=== PATIENT | female | born 1955 | race Caucasian/White ===

== ENCOUNTER 2017-03-18 15:15 | Emergency (ER) | payer OTHER, MEDICARE ==
[~2017-03-18 15:15] MED LIST: AMITRIPTYLINE H50 M2 PO; ATENOLOL25 M1 PO; CALTRATE 600 +1 EACH PO; CLONAZEPAM0.5 M2 PO; COLACE100 M1 PO; COUMADIN5 M2 PO; DEPAKOTE500 M1 PO; LIPITOR40 M1 PO; MAGNESIUM400 M1 PO; NON-ASPIRIN PA325 MG PO; NORVASC5 M1 PO; OMEPRAZOLE40 M1 PO; OXYCODONE HCL10 M2 PO; OXYCODONE HCL5 M1 PO; OXYCONTIN30 M1 PO; PERCOCET 5-3251 EACH PO; ROBAXIN-750750 M1 PO; SEROQUEL100 M1 PO; SEROQUEL200 M1 PO; SEROQUEL300 M1 PO; VALIUM10 M1 PO; VITAMIN D250000 UNIT PO; ZOFRAN4 M2 PO
--- NOTE | 2017-03-18 15:39 | ED GI/GU/ABDOMINAL COMPLAINT ---
History of Present Illness General Chief Complaint: General Adult Stated Complaint: PT USES THE BATHROOM ALOT,WEAK,LIGHT HEADED Source: patient, old records Exam Limitations: no limitations Vital Signs & Intake/Output Vital Signs & Intake/Output Vital Signs Date Time Temp Pulse Resp B/P B/P Pulse O2 O2 Flow FiO2 Mean Ox Delivery Rate 03/18 1621 Room Air 03/18 1525 97.3 105 22 161/83 97 Allergies Coded Allergies: NO KNOWN ALLERGIES (07/29/16) Reconcile Medications Amitriptyline HCl 50 MG TABLET 1 TAB PO QPM SLEEP (Reported) Amlodipine Besylate (Norvasc) 5 MG TABLET 1 TAB PO DAILY BP (Reported) Atenolol 25 MG TABLET 1 TAB PO DAILY BP (Reported) Atorvastatin Calcium (Lipitor) 40 MG TABLET 1 TAB PO DAILY CHOLESTEROL ( Reported) Cephalexin (Keflex) 500 MG CAPSULE 1 CAP PO BID UTI Clonazepam 0.5 MG TABLET 1 TAB PO TID BIPOLAR (Reported) Divalproex Sodium (Depakote) 500 MG TABLET.DR 500 MG PO TID BIPOLAR (Reported ) Methocarbamol (Robaxin-750) 750 MG TABLET 1 TAB PO TID PRN spasm Methocarbamol (Robaxin) 500 MG TABLET 1 TAB PO TID PRN MUSCLE RELAXANT Omeprazole 40 MG CAPSULE.DR 1 CAP PO DAILY GERD (Reported) Quetiapine Fumarate (Seroquel) 100 MG TABLET 100 MG PO QAM BIPOLAR (Reported) Quetiapine Fumarate (Seroquel) 200 MG TABLET 200 MG PO QHS BIPOLAR (Reported) Tylenol With Codeine (Tylenol With Codeine #3 Tablet) 300 MG-30 MG TABLET 1 TAB PO BIDP PRN PAIN (Reported) Triage Note: PER PT FREQUENCY, AND GOING ALL TIME PT HAS HAD THIS FROM SEPTEMBER WAS HERE FOR SAME. SAW DR LOYOLA AND WAS TREATED X 1 MONTH, THEN IT STARTED AGAIN IN JANUARY. PT HAS MULTIPLE CO HEART MUMMER THAT WAS NEVER F/U ON, AND RED BLOTHES TO ARMS, FEELING WEAK, ALSO HAS CHRONIC PAIN BUT THEY KEEP CANCELLING MY APPT. Triage Nurses Notes Reviewed? yes ? n Is pt currently ? No HPI: Patient is a 61-year-old female presents complaining of multiple complaints. One to 2 months of urinary frequency, intermittent lightheadedness with position changes. Patient also reporting that she has a heart murmur that her visiting nurse told her was more pronounced today. Visiting nurse also told patient that she has irregular heartbeat. Patient was seen in the emergency department in September 2016 for evaluation of urinary frequency, was recommended to follow-up with the urologist. Patient has not seen a urologist yet. Past History Travel History Traveled to [place] past 21 day No Medical History Any Pertinent Medical History? see below for history Neurological: NONE EENT: TONSILECTOMY Cardiovascular: hypertension, hyperlipidemia Respiratory: NONE Gastrointestinal: GERD, DYSPHAGIA CONSTIPATION Hepatic: NONE Renal: NONE Musculoskeletal: osteoarthritis Psychiatric: opioid dependence Endocrine: hypoglycemia RADIOLOGIC TECH/Reproductive: HYSTERECTOMY History of MRSA: No History of VRE: No History of CDIFF: No Surgical History Surgical History: knee replacement Psychosocial History Who do you live with Patient/Self Services at Home Nursing What is your primary language Tajik Tobacco Use: Never used Family History Hx Contributory? No Review of Systems Review of Systems Constitutional: Reports: malaise. Denies: chills, fever. EENTM: Reports: no symptoms. Respiratory: Denies: cough, short of breath. Cardiovascular: Denies: chest pain. GI: Reports: bloating. Denies: abdominal pain, nausea, vomiting. Genitourinary: Reports: see HPI, frequency, urgency. Musculoskeletal: Reports: back pain (chronic, unchanged), neck pain (chronic unchanged). Skin: Reports: no symptoms. Neurological/Psychological: Reports: no symptoms. Hematologic/Endocrine: Reports: no symptoms. Immunologic/Allergic: Reports: no symptoms. Physical Exam Physical Exam General Appearance: well developed/nourished, alert, awake Head: atraumatic, normal appearance Eyes: Bilateral: normal appearance, PERRL, EOMI. Ears, Nose, Throat, Mouth: hearing grossly normal, moist mucous membrane Neck: normal inspection, supple, full range of motion Respiratory: normal breath sounds, chest non-tender, no respiratory distress, lungs clear Cardiovascular: regular rate/rhythm, systolic murmur (4/6) Gastrointestinal: normal bowel sounds, soft, non-tender Back: normal inspection, normal range of motion Extremities: normal range of motion Neurologic/Psych: awake, alert, oriented x 3 Skin: intact, normal color, warm/dry, NORMAL SKIN TURGOR Core Measures ACS in differential dx? No Severe Sepsis Present: No Septic Shock Present: No Progress Differential Diagnosis: AAA, AMI, appendicitis, biliary colic, bowel obstruction , colon cancer, cholecystitis, diverticulitis, endometritis, hepatitis, hernia, ischemic bowel, inflamm bowel dis, ovarian cyst, ovarian torsion, pancreatitis, PID/cervicitis, peptic ulcer, PUD/GERD, perforated viscous, SBO, UTI/pyelo, electrolyte abnormality, dehydration, arrhythmia, aortic stenosis, MVP, mitral regurge Plan of Care: Orders Procedure Date/time Status Add-on Test (ER Only) 03/18 1724 Active Add-on Test (ER Only) 03/18 1629 Active TSH REFLEX 03/18 1605 Active TROPONIN LEVEL 03/18 1605 Active Telemetry/Rn Psych 03/18 1556 Active MISTAKE 03/18 1550 Active DEPAKOTE LEVEL 03/18 1550 Active COMPREHENSIVE METABOLIC PANEL 03/18 1550 Active CBC WITHOUT DIFFERENTIAL 03/18 1550 Complete EKG 03/18 1550 Active CULTURE,URINE 03/18 1528 Active URINALYSIS 03/18 1528 Complete Laboratory Tests 03/18/17 1708: Urinalysis LIGHT H, Urine Color YEL, Urine Clarity HAZY H, Urine pH 6.5, Ur Specific [place] 1.025, Urine Protein NEG, Urine Ketones 15 H, Urine Nitrite NEG, Urine Bilirubin NEG, Urine Urobilinogen 0.2, Ur Leukocyte Esterase LARGE H , Ur Microscopic SEDIMENT EXAMINED, Urine RBC 1-3, Urine WBC 15-25 H, Ur Epithelial Cells FEW, Urine Bacteria MOD H, Urine Mucus MOD H, Urine Hemoglobin SMALL H, Urine Glucose NEG 03/18/17 1605: Anion Gap 13, Estimated GFR > 60, BUN/Creatinine Ratio 32.0 H, Glucose 98, Calcium 9.9, Total Bilirubin 0.5, AST 22, ALT 24, Alkaline Phosphatase 48, Troponin I < 0.01, Total Protein 7.1, Albumin 4.2, Globulin 2.9, Albumin/ Globulin Ratio 1.4, TSH &T3 &Free T4 Intrp Pending, CBC w Diff NO MAN DIFF REQ, RBC 4.28, MCV 97.3, MCH 32.6 H, RDW 14.5, MPV 6.7 L, Gran % 52.5, Lymphocytes % 38.4, Monocytes % 7.8, Eosinophils % 0.9, Basophils % 0.4, Absolute Granulocytes 2.9, Absolute Lymphocytes 2.1, Absolute Monocytes 0.4, Absolute Eosinophils 0, Absolute Basophils 0, PUBS MCHC 33.5, Valproic Acid 65.0 Microbiology 03/18 1708 URINE ROUT: Urine Culture - RECD 03/18/2017 5:45:15 PM: Results of labs discussed with patient. Diffuse mild ST depression on EKG. No chest pain or dyspnea. Troponin negative. Patient appears stable to follow up with cardiology outpatient. Patient has appointment with her primary care doctor early next week. Will start patient on antibiotics for urinary tract infection (MONCHO KOENIG,DANUTA) Initial ED EKG: normal axis, normal intervals, normal p-waves, normal QRS complex, normal sinus rhythm, ST depression (diffuse leads) Departure Departure Time of Disposition: 1737 Disposition: HOME OR SELF CARE Condition: Stable Clinical Impression Primary Impression: Urinary tract infection Qualifiers: Urinary tract infection type: acute cystitis Hematuria presence: without hematuria Qualified Code: N30.00 - Acute cystitis without hematuria Referrals: MOUSTAPHA LOPES,REGINE LOYOLA MD,ELIZABETH Stacy (PCP/Family) ROMMEL LOPES,EMERY Additional Instructions: Follow-up with your primary doctor next week as previously scheduled. Return to the emergency department if you develop fevers or worsening of symptoms. Also follow up with Dr. Ren(urologist) and Dr. Yu(cloth mercerizing supervisor) for further evaluation. Call in the morning for appointments. Departure Forms: Customer Survey General Discharge Information Prescriptions: Current Visit Scripts Cephalexin (Keflex) 1 CAP PO BID #14 CAP Methocarbamol (Robaxin) 1 TAB PO TID PRN MUSCLE RELAXANT #21 TAB
[2017-03-18] MEDS ORDERED: SEROQUEL100 M1 PO (16:01)
[2017-03-18] MEDS ORDERED: SEROQUEL200 M1 PO (16:02)
[2017-03-18] MEDS ORDERED: TYLENOL WITH C1 EACH PO (16:04)
[2017-03-18 16:15] LABS: ABSOLUTE BASOPHIL COUNT 0 /CUMM (0.0-0.2); ABSOLUTE EOSINOPHIL COUNT 0 /CUMM (0.0-0.7); ABSOLUTE GRANULOCYTE CT 2.9 /CUMM (1.4-6.5); ABSOLUTE LYMPH COUNT 2.1 /CUMM (1.2-3.4); ABSOLUTE MONOCYTE COUNT 0.4 /CUMM (0.10-0.60); BASOPHIL % 0.4 % (0.0-2.0); EOSINOPHIL % 0.9 % (0-5); GRANULOCYTE % 52.5 % (42.2-75.2); HEMATOCRIT 41.6 % (37-47); MEAN CORPUSCULAR HGB 32.6 PG (27.0-31.0); MEAN CORPUSCULAR HGB CONC 33.5 G/DL (33.0-37.0); MEAN CORPUSCULAR VOLUME 97.3 FL (81.0-99.0); MEAN PLATELET VOLUME 6.7 FL (7.4-10.4); PLATELET COUNT 255 /CUMM (130-400); RBC DISTRIBUTION WIDTH 14.5 % (11.5-14.5); RED BLOOD CELL CT 4.28 /CUMM (4.20-5.40); WHITE BLOOD CELL COUNT 5.5 /CUMM (4.8-10.8)
[2017-03-18] MEDS ORDERED: KEFLEX500 M1 PO (17:29)
[2017-03-18] MEDS ORDERED: ROBAXIN500 M1 PO (17:37)
[2017-03-18 18:11] VITALS: BP 142/72
== END 2017-03-18 18:12 ==
LOC: ERH 15:15
PROVIDERS: Physician Assistant
DX: N39.0 Urinary tract infection, site not specified (principal)
CPT/HCPCS: 81001; 87086; 93005; 93010; 96360; 96361; J7040

== ENCOUNTER 2018-07-02 19:03 | Inpatient (IN) | payer OTHER, MEDICARE ==
[~2018-07-02] VITALS: Ht 162.6 cm; Wt 70.9 kg
[~2018-07-02 19:03] MED LIST changes: +AMLODIPINE BESY10 M1 PO; +ATIVAN0.5 M1 PO; +CARAFATE1 GM/10 M1 PO; +FIORINAL 50-321 EACH PO; +IMITREX100 M1 PO; +KEFLEX500 M1 PO; +ROBAXIN500 M1 PO; +SEROQUEL25 M1 PO; +TYLENOL WITH C1 EACH PO; +ZOFRAN8 M1 PO
[2018-07-02 20:42] LABS: ABSOLUTE BASOPHIL COUNT 0 /CUMM (0.0-0.2); ABSOLUTE EOSINOPHIL COUNT 0 /CUMM (0.0-0.7); ABSOLUTE GRANULOCYTE CT 7.2 /CUMM (1.4-6.5); ABSOLUTE LYMPH COUNT 0.8 /CUMM (1.2-3.4); ABSOLUTE MONOCYTE COUNT 0.3 /CUMM (0.10-0.60); BASOPHIL % 0.3 % (0.0-2.0); EOSINOPHIL % 0 % (0-5); HEMATOCRIT 41.5 % (37-47); MEAN CORPUSCULAR HGB 32.3 PG (27.0-31.0); MEAN CORPUSCULAR VOLUME 94.9 FL (81.0-99.0); MEAN PLATELET VOLUME 7.1 FL (7.4-10.4); PLATELET COUNT 341 /CUMM (130-400); RBC DISTRIBUTION WIDTH 13.6 % (11.5-14.5); RED BLOOD CELL CT 4.37 /CUMM (4.20-5.40); WHITE BLOOD CELL COUNT 8.4 /CUMM (4.8-10.8)
[2018-07-02 21:03] LABS: GRANULOCYTE % 85.9 % (42.2-75.2)
--- NOTE | 2018-07-02 22:01 | ED GI/GU/ABDOMINAL COMPLAINT ---
See Addendum History of Present Illness General Chief Complaint: Abdominal Pain/Flank Pain Stated Complaint: BIBA WITH FOR ABDOMINAL AND CONSITAPATION Source: patient, old records, [facility] RECORDS Exam Limitations: no limitations Vital Signs & Intake/Output Vital Signs & Intake/Output Vital Signs Date Time Temp Pulse Resp B/P B/P Pulse O2 O2 Flow FiO2 Mean Ox Delivery Rate 07/03 0334 98.5 78 18 136/62 97 Room Air 07/03 0045 110 18 179/80 95 Room Air 07/02 2123 99.0 07/02 2117 Room Air 07/02 2103 99.6 98 19 148/76 97 Room Air 07/02 1915 99.3 91 18 157/77 96 Room Air ED Intake and Output 07/03 0000 07/02 1200 Intake Total 0 Output Total Balance 0 Intake, Oral 0 Patient 135 lb Weight Weight Reported by Patient Measurement Method Allergies Coded Allergies: adhesive (Intermediate, SKIN REACTION 04/06/18) Triage Note: PT BIBA FROM HOME C/O CONSTIPATION, NAUSEA, CROCKETT, MIGRAINE SINCE 0900. PT WAS D/C'S FROM [facility] AROUND 1730 AND TAKEN TO [facility] BY AMBULANCE FOR THE SAME. PT STATES THEY DID AN XRAY AND SCAN WHICH SHOWED CONSIPATION, SOAP SUDS ENEMA GIVEN AND PT HAD A BM. PT STATES "I WAS HURRIED UP OUT OF THE HOSPITAL EVEN THOUGH I TOLD THEM I DIDNT FEEL BETTER". PT SENT HOME WITH SCRIPTS THAT SHE HAS NOT BEEN ABLE TO FILL YET. Triage Nurses Notes Reviewed? yes LMP (ages 10-50): post menopausal, unknown ? N Is pt currently ? No Onset: Abrupt Duration: week(s): (1), changing over time, continues in ED Timing: single episode today Quality/Severity: cramping, fullness Severity Numbers: 6 Location: epigastric Radiation: no radiation Activities at Onset: none Prior Abdominal Problems: none Past Sexual History: Unobtainable at this time No Modifying Factors: none HPI: 62-year-old female history of hypertension hyperlipidemia opioid dependence GERD presents for evaluation of abdominal pain nausea and constipation. Patient reports she has not had a bowel movement in 1 week. She states that she has had epigastric pain intermittently as well as nausea. She went to [facility] today for the same symptoms and was evaluated with CT scan and blood work. Evaluation was unremarkable she was given a soapsuds enema which allowed her to have a large bowel movement and was discharged. She reports she continued to have epigastric pain and nausea so she came here. She reports pain that has been located in the epigastric area it has been waxing and waning since it first started. The time of my initial evaluation the pain was getting better without any treatment. She reports associated headache. No vomiting diarrhea changes in vision shortness of breath hemoptysis or lower extremity edema no recent surgery or recent trauma. No chest pain. (Edgar KOENIG,Silver) Reconcile Medications Amlodipine Besylate 10 MG TABLET 1 TAB PO DAILY BP (Reported) Atenolol 25 MG TABLET 1 TAB PO DAILY BP (Reported) Atorvastatin Calcium (Lipitor) 40 MG TABLET 1 TAB PO DAILY CHOLESTEROL ( Reported) Clomiphene Citrate (Serophene) 50 MG TABLET 1 TAB PO QHS MENTAL HEALTH ( Reported) Divalproex Sodium (Depakote) 500 MG TABLET.DR 500 MG PO TID BIPOLAR (Reported ) Duloxetine HCl 20 MG CAPSULE.DR 1 CAP PO DAILY DEPRESSION (Reported) Fiorinal (Fiorinal 50-325-40 MG Capsule) 50 MG-325 MG-40 MG CAPSULE 1 TAB PO TID PRN HEADACHE EIGHT...[id number] Lorazepam (Ativan) 0.5 MG TABLET 1 TAB PO BIDP PRN INSOMNIA/ANXIETY/HEADACHE TWO...[id number] Methocarbamol (Robaxin) 500 MG TABLET 1 TAB PO TID PRN pain Omeprazole 40 MG CAPSULE.DR 1 CAP PO DAILY GERD (Reported) Ondansetron HCl (Zofran) 8 MG TABLET 1 TAB PO TID PRN N/V (Reported) Quetiapine Fumarate (Seroquel) 25 MG TABLET 1 TAB PO TID MENTAL HEALTH ( Reported) Sumatriptan Succinate (Imitrex) 100 MG TABLET 1 TAB PO AD PRN HEADACHES ( Reported) with fluids as early as possible after the onset of a migraine attack;may repeat after 2 hours if headache returns, not to exce (Kasi Leahy DO) Past History Travel History Traveled to [place] past 21 day No Medical History Any Pertinent Medical History? see below for history Neurological: MIGRANES EENT: TONSILECTOMY Cardiovascular: hypertension, hyperlipidemia Respiratory: NONE Gastrointestinal: GERD, DYSPHAGIA CONSTIPATION Hepatic: NONE Renal: NONE Musculoskeletal: osteoarthritis Psychiatric: opioid dependence Endocrine: hypoglycemia RETAIL EQUIPMENT ASSOCIATE/Reproductive: HYSTERECTOMY History of MRSA: No History of VRE: No History of CDIFF: No Surgical History Surgical History: knee replacement Psychosocial History Who do you live with Patient/Self Services at Home Nursing What is your primary language Malagasy Tobacco Use: Never used Family History Hx Contributory? No (Silver Parker) Review of Systems Review of Systems Constitutional: Reports: no symptoms. EENTM: Reports: no symptoms. Respiratory: Reports: no symptoms. Cardiovascular: Reports: no symptoms. GI: Reports: see HPI, abdominal pain, constipation, nausea. Genitourinary: Reports: no symptoms. Musculoskeletal: Reports: no symptoms. Skin: Reports: no symptoms. Neurological/Psychological: Reports: no symptoms. Hematologic/Endocrine: Reports: no symptoms. Immunologic/Allergic: Reports: no symptoms. All Other Systems: Reviewed and Negative (Silver Parker) Physical Exam Physical Exam General Appearance: well developed/nourished, no apparent distress, alert, awake Head: atraumatic, normal appearance Eyes: Bilateral: normal appearance, PERRL, EOMI. Ears, Nose, Throat, Mouth: hearing grossly normal, moist mucous membrane Neck: normal inspection, supple, full range of motion Respiratory: normal breath sounds, chest non-tender, no respiratory distress, lungs clear Cardiovascular: regular rate/rhythm, normal peripheral pulses Peripheral Pulses: 2+ radial (R), 2+ radial (L) Gastrointestinal: normal bowel sounds, soft, no organomegaly, tenderness ( EPIGASTRIC ) Rectal: normal inspection, normal rectal tone, heme negative stool, hemmorrhoids Back: normal inspection, normal range of motion, no vertebral tenderness Extremities: normal range of motion Neurologic/Psych: no motor/sensory deficits, awake, alert, oriented x 3, normal gait, normal mood/affect Skin: intact, normal color, warm/dry Core Measures ACS in differential dx? Yes Sepsis Present: No Sepsis Focused Exam Completed? No (Silver Parker) Progress Differential Diagnosis: AAA, AMI, appendicitis, biliary colic, bowel obstruction , colon cancer, diverticulitis, gastritis, hepatitis, ischemic bowel, inflamm bowel dis, intrauterine , kidney stone, ovarian cyst, ovarian torsion, pancreatitis, PID/cervicitis, peptic ulcer, PUD/GERD, perforated viscous, SBO, ACUTE CORONARY SYNDROME Plan of Care: Orders Procedure Date/time Status Patient Data 07/03 040 Active TROPONIN LEVEL 07/03 011 Complete Add-on Test (ER Only) 07/03 43 Active TROPONIN LEVEL 07/02 2330 Complete EKG 07/02 2330 Active EKG 07/02 2128 Active Add-on Test (ER Only) 07/02 2050 Active PARTIAL THROMBOPLASTIN TIME 07/02 2030 Complete PROTHROMBIN TIME 07/02 2030 Complete MAGNESIUM 07/02 2030 Complete ETHANOL 07/02 2030 Complete B-TYPE NATRIURETIC PEP (BNP) 07/02 2030 Complete LACTIC ACID 07/02 2003 Complete URINE DRUGS OF ABUSE 07/02 1939 Complete URINALYSIS 07/02 1939 Complete TROPONIN LEVEL 07/02 1939 Complete LIPASE 07/02 1939 Complete COMPREHENSIVE METABOLIC PANEL 07/02 1939 Complete CBC WITHOUT DIFFERENTIAL 07/02 1939 Complete Current Medications Sig/Livia Start time Last Medication Dose Stop Time Status Admin Heparin Sodium 25,000 UNIT Q24H 07/03 004 AC 07/03 (Porcine) 0135 (Heparin) Sodium Chloride 500 ML Laboratory Tests 07/03/18 0240: Troponin I 0.15 *H 07/03/18 0030: Urine Opiates Screen > 4000.00 H, Methadone Screen 61, Barbiturate Screen 249 H, Ur Phencyclidine Scrn < 6.00, Amphetamines Screen < 100, U Benzodiazepines Scrn 231 H, Urine Cocaine Screen < 50, Urine Cannabis Screen < 5.00, Urine Color YEL, Urine Clarity CLEAR, Urine pH 7.0, Ur Specific [place] 1.010, Urine Protein TRACE H, Urine Ketones 15 H, Urine Nitrite NEG, Urine Bilirubin NEG, Urine Urobilinogen 0.2, Ur Leukocyte Esterase NEG, Ur Microscopic SEDIMENT EXAMINED, Urine RBC 10-15 H, Urine WBC RARE, Ur Epithelial Cells FEW, Urine Hemoglobin MOD H, Urine Glucose NEG 07/02/18 2325: Troponin I 0.16 *H 07/02/182302: Lactic Acid Cancelled 07/02/182029: Lactic Acid 1.3 07/02/182029: Anion Gap 10, Estimated GFR > 60, BUN/Creatinine Ratio 60.0 H, Glucose 126 H, Calcium 10.1, Magnesium 1.2 L, Total Bilirubin 0.5, AST 25, ALT 39, Alkaline Phosphatase 83, Troponin I 0.10, [id number] Pept 205 H, Total Protein 7.5, Albumin 4.5, Globulin 3.0, Albumin/Globulin Ratio 1.5, Lipase 67, PT 10.8, INR 0.99, APTT 26, CBC w Diff NO MAN DIFF REQ, RBC 4.37, MCV 94.9, MCH 32.3 H, MCHC 34.0, RDW 13.6, MPV 7.1 L, Gran % 85.9 H, Lymphocytes % 9.9 L, Monocytes % 3.9, Eosinophils % 0, Basophils % 0.3, Absolute Granulocytes 7.2 H, Absolute Lymphocytes 0.8 L, Absolute Monocytes 0.3, Absolute Eosinophils 0, Absolute Basophils 0, Serum Alcohol < 10.0 Patient is here for evaluation of constipation abdominal pain and nausea. The pain is located in the epigastric area. She has no chest pain or shortness of breath. She was seen at [facility] earlier today. She had a CAT scan done that was within normal limits. See attached paperwork in her physical chart. She was given a enema and was able to have a bowel movement. Labs EKG ordered vision medicated with Fioricet and Zofran. Blood work shows a troponin of 0.10 still negative and was positive. Patient denies chest pain but did have epigastric pain. At the time of my evaluation her pain was going away and she is asymptomatic currently. She has no chest pain or shortness of breath. An EKG was ordered which does not appear to be significant change there are some nonspecific ST-T wave changes in the chest leads but they are not significantly different from previous. A repeat EKG troponin will be obtained. Repeat troponin is +0.16. Repeat EKG is unremarkable. Patient remains asymptomatic. Spoke with ecological economist seed and fertilizer specialist Dr. Logan who recommends loading with BRILLENTA and heparin. Patient was also given aspirin. Patient will be admitted to telemetry for serial lab serial EKGs cardiology echocardiogram IV heparin. Case discussed with Dr. Leahy he agrees. Dr. Leahy admitted the patient to telemetry. Diagnostic Imaging: Viewed by Me: CT Scan ([facility]). Discussed w/RAD: CT Scan ([facility]) . Initial ED EKG: normal sinus rhythm, nonspecific ST T wave chg Prior EKG: unchanged Repeat EKG: unchanged (Silver Parker) Departure Departure Disposition: STILL A PATIENT Condition: Stable Clinical Impression Primary Impression: NSTEMI (non-ST elevated myocardial infarction) Referrals: Alison LOPES,Odilia Lee (PCP/Family) Departure Forms: Customer Survey General Discharge Information Admission Note Spoke With: Domenico Burrows MD Documentation of Exam: Documentation of any treatments & extenuating circumstances including Concerns Regarding Discharge (functional status, medication knowledge or non-compliance, living conditions, etc.) that warrant an admission rather than observation: [ serial lab serial EKGs cardiology echocardiogram IV hepari] (Edgar KOENIG,Silver) Resident Co-Sign Statement Statement: ED Attending supervision documentation- [X] I saw and evaluated the patient. I have also reviewed all the pertinent lab results and diagnostic results. I agree with the findings and the plan of care as documented in the Resident's documentation. [] I have reviewed the ED Record and agree with the Resident's documentation. [] Additions or exceptions (if any) to the Resident's note and plan are summarized below: [] I saw and personally examined the patient and I agree with the PAs evaluation. 62-year-old female status post episode of abdominal pain and vomiting at [facility]. She continued to have ongoing nausea and abdominal pain and then developed chest pain. Troponin was positive, EKG shows nonspecific ST-T wave abnormality (Kasi Leahy DO)
[2018-07-03 01:13] LABS: PT 10.8 SEC (9.4-12.5); PTT 26 SEC (25-37)
--- NOTE | 2018-07-03 01:13 | RADIOLOGY REPORT ---
EXAMINATION: XR PORTABLE CHEST CLINICAL INFORMATION: Epigastric pain COMPARISON: None TECHNIQUE: Portable frontal view of the chest was obtained. FINDINGS: The lungs are well expanded. There is no focal consolidation, edema, or effusion. No pneumothorax. The cardiomediastinal silhouette is within normal limits. No acute osseous abnormality. IMPRESSION: No acute pulmonary finding.
[2018-07-03] MEDS ORDERED: DULOXETINE HCL20 MG PO (02:32)
--- NOTE | 2018-07-03 04:20 | History & Physical ---
Kristyn Yu 07/03/18 0407: General Information and HPI MD Statement: I have seen and personally examined ALEX LILLY and documented this H&P. The patient is a 62 year old F who presented with a patient stated chief complaint of abdominal pain and nausea. Source of Information: patient, old records Exam Limitations: no limitations History of Present Illness: Patient is a 62 year old female with past medical history of hypertension, hyperlipidemia, migraines, opioid dependence, GERD, dysphagia who came to ED for evaluation of abdominal pain, nausea and constipation. Of note, patient went to [facility] earlier in the day for the same symptoms. At that time she was evaluated with CT scan and blood work which was unremarkable and discharged after a bowel movement. Patient on assessment claimed she had abdominal pain which started yesterday at 8AM described to be aching in nature, 9/10 on the pain scale and intermittent. Originally, the abdominal pain started under the left lower rib but radiated to the epigastric region where it remained. Pain was non-positional and she had no appetite all day since the morning. In addition, patient has been constipated for past week which she attributes to a new medication (mybetric) that was given by her urologist 2 weeks ago for overactive bladder with noted side effect of constipation. Patient has been having nausea that has been increasing with the abdominal pain which made her come to the [facility] ED. She denies any vomiting, diarrhea and claims she has not been passing gas lateley. Patient has had trouble urinating since starting the new medication. She claimed to have "anxiety" recently with "palpitations stating my heart feels like it was jumping out of my chest." No chest pain reported. Patient has a family history of CAD with a father with LA at age 45 and grandmother stroke at age 50. Patient lives at home alone and uses a walker at baseline. Boom Master: Dr. Yu ROS: Negative For: Abdominal pain, nausea, vomiting, headache, shortness of breath, dysuria, chest pain Past Surgical:Tonssilectomy, Hysterectomy, Carpal Tunnel in Nov 2017 Family Hx: Father LA at age 45 Smoking/Alcohol: Denies use Allergies/Medications Home Med list Amlodipine Besylate 10 MG TABLET 1 TAB PO DAILY BP (Reported) Atenolol 25 MG TABLET 1 TAB PO DAILY BP (Reported) Atorvastatin Calcium (Lipitor) 40 MG TABLET 1 TAB PO DAILY CHOLESTEROL ( Reported) Clomiphene Citrate (Serophene) 50 MG TABLET 1 TAB PO QHS MENTAL HEALTH ( Reported) Divalproex Sodium (Depakote) 500 MG TABLET.DR 500 MG PO TID BIPOLAR (Reported ) Duloxetine HCl 20 MG CAPSULE.DR 1 CAP PO DAILY DEPRESSION (Reported) Fiorinal (Fiorinal 50-325-40 MG Capsule) 50 MG-325 MG-40 MG CAPSULE 1 TAB PO TID PRN HEADACHE EIGHT...[id number] Lorazepam (Ativan) 0.5 MG TABLET 1 TAB PO BIDP PRN INSOMNIA/ANXIETY/HEADACHE TWO...[id number] Methocarbamol (Robaxin) 500 MG TABLET 1 TAB PO TID PRN pain Omeprazole 40 MG CAPSULE.DR 1 CAP PO DAILY GERD (Reported) Ondansetron HCl (Zofran) 8 MG TABLET 1 TAB PO TID PRN N/V (Reported) Quetiapine Fumarate (Seroquel) 25 MG TABLET 1 TAB PO TID MENTAL HEALTH ( Reported) Sumatriptan Succinate (Imitrex) 100 MG TABLET 1 TAB PO AD PRN HEADACHES ( Reported) with fluids as early as possible after the onset of a migraine attack;may repeat after 2 hours if headache returns, not to exce Past History Travel History Traveled to [place] past 21 day No Medical History Neurological: MIGRANES EENT: TONSILECTOMY Cardiovascular: hypertension, hyperlipidemia Respiratory: NONE Gastrointestinal: GERD, DYSPHAGIA CONSTIPATION Hepatic: NONE Renal: NONE Musculoskeletal: osteoarthritis Psychiatric: opioid dependence Endocrine: hypoglycemia PEDIATRIC SOCIAL WORKER/Reproductive: HYSTERECTOMY History of MRSA: No History of VRE: No History of CDIFF: No Surgical History Surgical History: knee replacement Past Family/Social History Psychosocial History Services at Home: Nursing Smoking Status: Never Smoked ETOH Use: denies use Sexual History Past Sexual History Unobtainable at this time Review of Systems Review of Systems Constitutional: Denies: see HPI. Exam & Diagnostic Data Last 24 Hrs of Vital Signs/I&O Vital Signs Date Time Temp Pulse Resp B/P B/P Pulse O2 O2 Flow FiO2 Mean Ox Delivery Rate 07/03 0334 98.5 78 18 136/62 97 Room Air 07/03 0045 110 18 179/80 95 Room Air 07/02 2123 99.0 07/02 2117 Room Air 07/02 2103 99.6 98 19 148/76 97 Room Air 07/02 1915 99.3 91 18 157/77 96 Room Air Intake & Output 07/03 0800 07/03 0000 07/02 1600 Intake Total 0 Output Total Balance 0 Intake, Oral 0 Patient 154 lb 135 lb Weight Weight Reported by Patient Measurement Method Physical Exam General Appearance Alert, Oriented X3, Cooperative, No Acute Distress Skin No Rashes, No Breakdown HEENT PERRLA, EOMI, Mucous Membr. moist/pink Neck Supple, No JVD, No thryomegaly Cardiovascular Regular Rate, Normal S1, Normal S2 Lungs Clear to Auscultation, Normal Air Movement Abdomen Normal Bowel Sounds, Soft, No Tenderness Neurological Normal Speech, Strength at 5/5 X4 Ext, Normal Tone, Sensation Intact, Cranial Nerves 3-12 NL, Reflexes 2+ Extremities No Clubbing, No Cyanosis, No Edema Last 24 Hrs of Labs/Maurizio: Laboratory Tests 07/03/18 0240: Troponin I 0.15 *H 07/03/18 0030: Urine Opiates Screen > 4000.00 H, Methadone Screen 61, Barbiturate Screen 249 H, Ur Phencyclidine Scrn < 6.00, Amphetamines Screen < 100, U Benzodiazepines Scrn 231 H, Urine Cocaine Screen < 50, Urine Cannabis Screen < 5.00, Urine Color YEL, Urine Clarity CLEAR, Urine pH 7.0, Ur Specific [place] 1.010, Urine Protein TRACE H, Urine Ketones 15 H, Urine Nitrite NEG, Urine Bilirubin NEG, Urine Urobilinogen 0.2, Ur Leukocyte Esterase NEG, Ur Microscopic SEDIMENT EXAMINED, Urine RBC 10-15 H, Urine WBC RARE, Ur Epithelial Cells FEW, Urine Hemoglobin MOD H, Urine Glucose NEG 07/02/18 2325: Troponin I 0.16 *H 07/02/18 2303: Lactic Acid Cancelled 07/02/18 2030: Lactic Acid 1.3 07/02/18 2030: Anion Gap 10, Estimated GFR > 60, BUN/Creatinine Ratio 60.0 H, Glucose 126 H, Calcium 10.1, Magnesium 1.2 L, Total Bilirubin 0.5, AST 25, ALT 39, Alkaline Phosphatase 83, Troponin I 0.10, Cxo-A-Ecnetcodccf Pept 205 H, Total Protein 7.5, Albumin 4.5, Globulin 3.0, Albumin/Globulin Ratio 1.5, Lipase 67, PT 10.8, INR 0.99, APTT 26, CBC w Diff NO MAN DIFF REQ, RBC 4.37, MCV 94.9, MCH 32.3 H, MCHC 34.0, RDW 13.6, MPV 7.1 L, Gran % 85.9 H, Lymphocytes % 9.9 L, Monocytes % 3.9, Eosinophils % 0, Basophils % 0.3, Absolute Granulocytes 7.2 H, Absolute Lymphocytes 0.8 L, Absolute Monocytes 0.3, Absolute Eosinophils 0, Absolute Basophils 0, Serum Alcohol < 10.0 Diagnostic Data EKG Results NSR 81, nonspecific T wave changes Assessment/Plan Assessment: Patient is a 62 year old female with past medical history of migraines, popod dependence, hypertension, hyperlipidemia, GERD who came to ED for evaluation of abdominal pain, nausea and constipation. Patient went to [facility] earlier today for same symptoms and evaluated with CT scan and blood work which was unremarkable. Given enema at the hospital and had a bowel movement prior to discharge. Admitting to telemetry for given elevated troponins 0.16, 0.15, history of palpitations prior to admission, strong family history of CAD (father LA 45). EMERGENCY DEPARTMENT: ASA 325 + Brilinta 180mg, Heparin bolus + Heparin 25,000 IV, Ativan X1, Zofran, Fioricet Vitals: 99.3, 91, 18, 157/77--179/80, 96%RA EKG: NSR 71, nonspecfic T wave changes Troponin: 0.10, 0.16, 0.15 CBC: WBC: 8.4, Hgb: 14.1, Hct: 41.5, Plt: 341 Chemistry: Na 134, K 3.6, Cl 94, CO2 30, BUN 18, Cr: 0.3 M.2 AST: 25; ALT: 39 Lactic Acid: 1.3 Utox: -barbiturate (H); Benzo 231 (H), Urine opiate +\\ UA: Ketones (15H), trace protein, CXR: IMPRESSION: No acute pulmonary finding. SPECT Scan in 04/2017: (abnbormal ecg) - Jeronimo Santiago IMPRESSION: Normal Persantine stress and resting myocardial perfusion study with normal left ventricular wall motion and ejection fraction. PROBLEM LIST: 1. Rule Out ACS (elevated troponins) 2. Abdominal Pain/nausea 3. Hypertension ELEVATED TROPONINS Patientdid not have a cheif complaint of chest pain on admission but rather epigastric. She admitted to palpiations associated with her course. Significant strong family history of CAD (Father LA age 45). No signfiicant EKG changes. Patients clinical picture likely due to demand ischemia given palpiations/ elevated heart rate versus a coronary syndrome. History of negative SPECT scan in 2016. Received ASA/Brilinta as per Dr. Montero in the ED. * Admit to telemetry for further monitoring * IV Heparin drip * Continue ASA + statin; received loading dose of ASA and brilinta in ED * Cardiology consultation in AM (patient follows Dr. Yu) * Serial Troponin/EKGs * Consider ECHO if recent not done * Vitals Q Shift ABDOMINAL PAIN Patient had a negative work up for abdominal pain at [facility] and was able to pass a bowel movement. Symptoms on assessment in ED resolved. Patient given zofran in ED. LFTs wnl. Negative physical exam. Constipation attributed to urological medication for overactive bladder. Will hold for now. * Monitor on telemetry * Bowel regimen as needed * Monitor vitals q shift HYPERTENSION Patients blood pressure hypertensive on admission. 157/77 to 179/80. This may be due to pain but she has a history of hypertension. * Monitor on telemetry * Vitals Q Shift * Continue home medications for blood pressure Code Status: DNR/DNI DVT PPx: IV Heparin Diet: Heart Healthy Diet As Ranked By This Provider Problem List: 1. Migraine headache 2. NSTEMI (non-ST elevated myocardial infarction) Core Measures/Misc (08/08) Acute Coronary Syndrome ACS Diagnosis: Yes Congestive Heart Failure Congestive Heart Failure Diagnosis No Cerebrovascular Accident CVA/TIA Diagnosis: No VTE (View Protocol) VTE Risk Factors Age>40 No Mechanical VTE Prophylaxis d/t N/A MechProphylax Ordered No VTE Pharm Prophylaxis d/t NA PharmProphylax ordered Sepsis (View protocol) If YES complete Sepsis Event Note If YES complete Sepsis Event Note Angeles Jarquin 07/03/18 0529: Core Measures/Misc (08/08) Sepsis (View protocol) Sepsis Present: No If YES complete Sepsis Event Note If YES complete Sepsis Event Note Resident Review Statement Resident Statement: examined this patient, discussed with customer experience intern, agreed with customer experience intern Other Findings: Patient is 59-year-old female with past medical history of migraines, GERD, dysphagia, osteoarthritis, opioid dependence, who came into the hospital with chief complaint of epigastric pain and nausea. Patient states that she has been having this epigastric pain and nausea since 8 AM yesterday, the pain is achy in nature, 9/10 at worst, intermittent. She does not have any appetite since yesterday, and reports that she only ate a little this morning. Patient states that her pain began under the left rib cage initially, and progressed as spasmodic pain radiating to the epigastric region. Earlier today, patient went to [facility] for these symptoms, her abdominal x-ray and CAT scan done there was significant for constipation. She was given soap enema and was discharged after bowel movement. Patient states that when she went home, neither her nausea nor abdominal pain had improved therefore she decided to come to [place]. In [place] ER, patient was given 1 tablet of fiorect for her migraines and Zofran for nausea. Later her labs came back positive for an elevated troponins of 0.16, another set was checked which came back for troponins of 0.15. Dr. Montero was called from ER, and patient was started on heparin drip and loaded with Brillanta. Review of system at the time of admission was negative for headaches/dizziness/ chest pain/abdominal discomfort/burning micturition/pain or swelling in lower extremities. Labs and vitals as above. Patient's reports from [place] reviewed. Chest x-ray done in [place] not significant for any pulmonary finding. Assessment and plan Patient will be admitted to telemetry floor for elevated troponins which could be due to demand ischemia. Patient reported of some palpitations going on intermittently since past 1 week, and palpitations earlier today which could be the cause of demand ischemia. will monitor for any arrythemia. Serial EKG and troponins. Patient follows up with Dr. Yu. With place cardiology consult , will continue patient on heparin drip. Will continue aspirin daily. Of note patient had negative stress test done last year. Patient might eventually need a cardiac cath once she is stabilized because of her positive family history of father having heart attack at the age of 45. Patient was started on Mirabegron 50 mg daily for her overactive bladder by her urologist which could have contributed to her constipation which was going on since the past week. Patient also reports that she has been having urinary hesitancy and blurred vision as well since she started taking this medication. Given that all these are medication sideeffects, we'll stop Mirabegron for now. And patient is advised to follow-up with her urologist. We'll continue the patient on rest of her medications including Tylenol 3, omeprazole duloxetine, divalproex, Quetiapine, atorvastatin, atenolol, amlodipine. Patient was getting Botox injection for migraine which were not helping her. DVT prophylaxis heparin drip Patient is DNR/DNI and wants to be an organ donor Domenico Burrows MD 07/03/18 0615: General Information and HPI Statement: I have seen and personally examined MAXXALEX and documented this H&P. The patient is a 62 year old F who presented with a patient stated chief complaint of [abdominal pain]. Source of Information: patient Exam Limitations: no limitations Allergies/Medications Allergies: Coded Allergies: adhesive (Intermediate, SKIN REACTION 04/06/18) Past History Medical History EENT: TONSILECTOMY Cardiovascular: hypertension, hyperlipidemia Gastrointestinal: GERD Musculoskeletal: osteoarthritis Psychiatric: opioid dependence Endocrine: hypoglycemia Past Family/Social History Psychosocial History Smoking Status: Never Smoked ETOH Use: denies use Illicit Drug Use: denies illicit drug use Review of Systems Review of Systems Constitutional: Reports: see HPI. Exam & Diagnostic Data Last 24 Hrs of Vital Signs/I&O Vital Signs Date Time Temp Pulse Resp B/P B/P Pulse O2 O2 Flow FiO2 Mean Ox Delivery Rate 07/03 0616 99.6 90 16 147/64 95 Room Air 07/03 0334 98.5 78 18 136/62 97 Room Air 07/03 0045 110 18 179/80 95 Room Air 07/023 99.0 07/02 2117 Room Air 07/02 2103 99.6 98 19 148/76 97 Room Air 07/02 1915 99.3 91 18 157/77 96 Room Air Intake & Output 07/03 0800 07/03 0000 07/02 1600 Intake Total 0 Output Total Balance 0 Intake, Oral 0 Patient 154 lb 135 lb Weight Weight Reported by Patient Measurement Method Physical Exam General Appearance Alert, Oriented X3, Cooperative, No Acute Distress Skin No Rashes, No Breakdown Skin Temp/Moisture Exam: Warm/Dry Sepsis Skin Exam (color): Normal for Ethnicity HEENT Atraumatic, PERRLA, EOMI, Mucous Membr. moist/pink Neck Supple, No JVD, No thryomegaly Lymphatic Axillary nl, Cervical nl Cardiovascular Regular Rate, Normal S1, Normal S2 Lungs Clear to Auscultation, Normal Air Movement Abdomen Normal Bowel Sounds, Soft, No Tenderness Neurological Normal Gait, Normal Speech Extremities No Clubbing, No Cyanosis, No Edema Vascular Normal Pulses, Pulses Symmetrical Sepsis Peripheral Pulse Location: Dorsalis Pedis Sepsis Peripheral Pulse Exam: Normal Sepsis Cap Refill Exam: <2 Sec Last 24 Hrs of Labs/Maurizio: Laboratory Tests 07/03/18 0240: Troponin I 0.15 *H 07/03/18 0030: Urine Opiates Screen > 4000.00 H, Methadone Screen 61, Barbiturate Screen 249 H, Ur Phencyclidine Scrn < 6.00, Amphetamines Screen < 100, U Benzodiazepines Scrn 231 H, Urine Cocaine Screen < 50, Urine Cannabis Screen < 5.00, Urine Color YEL, Urine Clarity CLEAR, Urine pH 7.0, Ur Specific [place] 1.010, Urine Protein TRACE H, Urine Ketones 15 H, Urine Nitrite NEG, Urine Bilirubin NEG, Urine Urobilinogen 0.2, Ur Leukocyte Esterase NEG, Ur Microscopic SEDIMENT EXAMINED, Urine RBC 10-15 H, Urine WBC RARE, Ur Epithelial Cells FEW, Urine Hemoglobin MOD H, Urine Glucose NEG 07/02/18 2325: Troponin I 0.16 *H 07/02/18 2303: Lactic Acid Cancelled 07/02/18 2030: Lactic Acid 1.3 07/02/18 2030: Anion Gap 10, Estimated GFR > 60, BUN/Creatinine Ratio 60.0 H, Glucose 126 H, Calcium 10.1, Magnesium 1.2 L, Total Bilirubin 0.5, AST 25, ALT 39, Alkaline Phosphatase 83, Troponin I 0.10, Nfi-V-Kadqntfajvi Pept 205 H, Total Protein 7.5, Albumin 4.5, Globulin 3.0, Albumin/Globulin Ratio 1.5, Lipase 67, PT 10.8, INR 0.99, APTT 26, CBC w Diff NO MAN DIFF REQ, RBC 4.37, MCV 94.9, MCH 32.3 H, MCHC 34.0, RDW 13.6, MPV 7.1 L, Gran % 85.9 H, Lymphocytes % 9.9 L, Monocytes % 3.9, Eosinophils % 0, Basophils % 0.3, Absolute Granulocytes 7.2 H, Absolute Lymphocytes 0.8 L, Absolute Monocytes 0.3, Absolute Eosinophils 0, Absolute Basophils 0, Serum Alcohol < 10.0 Core Measures/Misc (08/08) Sepsis (View protocol) If YES complete Sepsis Event Note If YES complete Sepsis Event Note Attending MD Review Statement Attending Statement Attending MD Statement: examined this patient, discuss w/resident/PA/SECURITY INTERN, agreed w/resident/PA/SECURITY INTERN, reviewed EMR data (avail) Attending Assessment/Plan: This patient is a 62-year-old white female with a significant past medical history for hypertension, hyperlipidemia, migraines, opioid dependence, GERD, dysphagia who came to ED for evaluation of abdominal pain, nausea and constipation. Of note, patient went to [facility] earlier in the day for the same symptoms. At that time she was evaluated with CT scan and blood work which were unremarkable. The pain persisted and she came to [facility]. The abdominal pain started one day prior to admission and described as achy in nature, 9/10 and intermittent. Pain was non-positional and she had no appetite. The symptoms have been increasing in intensity leading to the hospital visits. Upon evaluation in the emergency department studies performed at [facility] were reviewed, she was hypertensive 179/80 136/62, troponins 0.10 0.16 0.15, chest pain-free, EKG - normal sinus rhythm, nonspecific ST T wave chg and patient was without symptoms on admission. Admit to telemetry for acute coronary syndrome with significant family history and positive troponins. Obtain serial EKGs, trend troponin, heparin drip and cardiology consult. DNR/DNI
[2018-07-03 06:30] VITALS: BP 132/70
[2018-07-03 09:23] LABS: ABSOLUTE BASOPHIL COUNT 0 /CUMM (0.0-0.2); ABSOLUTE EOSINOPHIL COUNT 0 /CUMM (0.0-0.7); ABSOLUTE GRANULOCYTE CT 6.3 /CUMM (1.4-6.5); ABSOLUTE LYMPH COUNT 1.4 /CUMM (1.2-3.4); ABSOLUTE MONOCYTE COUNT 0.9 /CUMM (0.10-0.60); BASOPHIL % 0.2 % (0.0-2.0); EOSINOPHIL % 0.2 % (0-5); GRANULOCYTE % 72.9 % (42.2-75.2); MEAN CORPUSCULAR HGB 32.3 PG (27.0-31.0); MEAN CORPUSCULAR HGB CONC 33.7 G/DL (33.0-37.0); MEAN CORPUSCULAR VOLUME 95.6 FL (81.0-99.0); MEAN PLATELET VOLUME 7.7 FL (7.4-10.4); PLATELET COUNT 295 /CUMM (130-400); RBC DISTRIBUTION WIDTH 14.1 % (11.5-14.5); RED BLOOD CELL CT 3.74 /CUMM (4.20-5.40); WHITE BLOOD CELL COUNT 8.6 /CUMM (4.8-10.8)
[2018-07-03 10:16] LABS: HEMATOCRIT 35.8 % (37-47)
[2018-07-03 12:12] LABS: PTT 45 SEC (25-37)
--- NOTE | 2018-07-03 12:32 | Cons- Cardiology ---
General Information and HPI Consulting Request Date of Consult: 07/03/18 Requested By: Domenico Burrows MD Reason for Consult: positive troponins History of Present Illness: 62-year-old lady with past medical history of hypertension, hyperlipidemia, migraines, opioid dependence, GERD, dysphagia and bipolar disorder, who presented to the ER yesterday evening due to epigastric pain. The patient had started presenting severe pain below the left rib cage, and the anterior axillary line, which was quite intense, associated with nausea. She presented to [facility] emergency room given that she had been quite constipated over the past 5 days, although she did pass gas she did not have any significant amount of stools, and thought that perhaps her pain may be abdominal. At [facility] a pseudoobstruction was ruled out by CT scan, and the patient received an effective enema, passing a large amount of stool. The pain however persisted, moving now to the epigastric region, still associated with nausea, and heartburn. The patient was returned home, but given the ongoing pain she presented to [facility]. Upon arrival at the [facility] emergency room, the pain had completely subsided. The pain had been waxing and waning in intensity throughout the day. The initial troponins were positive and subsequently increased to 0.2. The EKG showed some nonspecific repolarization abnormalities. The patient denies syncope, denies palpitations, denies orthopnea, denies lower extremity edema, denies bleeding, denies new neurological deficits. Patient has an extensive family history of early onset coronary artery disease. Her complex human resources manager is Dr. Yu, whom she last approximately a year ago. At the time she underwent a pharmacological stress test (April 2017), which showed no evidence of ischemia. Allergies/Medications Allergies: Coded Allergies: adhesive (Intermediate, SKIN REACTION 04/06/18) Home Med List: Amlodipine Besylate 10 MG TABLET 1 TAB PO DAILY BP (Reported) Atenolol 25 MG TABLET 1 TAB PO DAILY BP (Reported) Atorvastatin Calcium (Lipitor) 40 MG TABLET 1 TAB PO DAILY CHOLESTEROL ( Reported) Divalproex Sodium (Depakote) 500 MG TABLET.DR 500 MG PO TID BIPOLAR (Reported ) Duloxetine HCl 20 MG CAPSULE.DR 1 CAP PO DAILY DEPRESSION (Reported) Fiorinal (Fiorinal 50-325-40 MG Capsule) 50 MG-325 MG-40 MG CAPSULE 1 TAB PO TID PRN HEADACHE EIGHT...[id number] Lorazepam (Ativan) 0.5 MG TABLET 1 TAB PO BIDP PRN INSOMNIA/ANXIETY/HEADACHE TWO...[id number] Methocarbamol (Robaxin) 500 MG TABLET 1 TAB PO TID PRN pain Omeprazole 40 MG CAPSULE.DR 1 CAP PO DAILY GERD (Reported) Ondansetron HCl (Zofran) 8 MG TABLET 1 TAB PO TID PRN N/V (Reported) Quetiapine Fumarate (Seroquel) 25 MG TABLET 1 TAB PO TID MENTAL HEALTH ( Reported) Sumatriptan Succinate (Imitrex) 100 MG TABLET 1 TAB PO AD PRN HEADACHES ( Reported) with fluids as early as possible after the onset of a migraine attack;may repeat after 2 hours if headache returns, not to exce Current Medications: Current Medications Sig/Livia Start time Last Medication Dose Route Stop Time Status Admin Acetaminophen 650 MG Q8P PRN 07/03 0530 AC PO Acetaminophen/ 1 TAB ONCE ONE 07/020 DC 07/02 Butalbital/Caffeine PO 07/02 2131 2149 Acetaminophen/ 1 TAB Q8 PRN 07/03 1000 AC 07/03 Codeine Phosphate PO 1012 Amlodipine Besylate 10 MG DAILY 07/03 900 AC 07/03 PO 0850 Aspirin 81 MG DAILY 07/03 900 AC 07/03 PO 0848 Aspirin 325 MG ONCE ONE 07/03 004 DC 07/03 PO 07/03 0046 0045 Aspirin 0 .STK-MED ONE 07/03 0044 DC PO Atenolol 25 MG DAILY 07/03 900 AC 07/03 PO 0851 Atorvastatin Calcium 40 MG DAILY 07/03 900 AC 07/03 PO 0848 Divalproex Sodium 500 MG TID 07/03 900 AC 07/03 PO 0848 Duloxetine HCl 20 MG DAILY 07/03 900 AC 07/03 PO 0848 Heparin Sodium 0 .STK-MED ONE 07/03 0059 DC (Porcine) .ROUTE Heparin Sodium 4,000 UNIT ONCE ONE 07/03 004 DC 07/03 (Porcine) IV 07/03 0046 0111 Heparin Sodium 25,000 UNIT Q24H 07/03 0045 AC 07/03 (Porcine) IV 0135 Sodium Chloride 500 ML Lorazepam 0.5 MG 0900,1700 PRN 07/03 0530 AC 07/03 PO 07/10 0529 0851 Lorazepam 0 .STK-MED ONE 07/03 0141 DC PO Lorazepam 1 MG ONE ONE 07/03 0130 DC 07/03 PO 07/03 0131 0141 Magnesium Oxide 400 MG ONE ONE 07/03 0545 DC 07/03 PO 07/03 0546 0852 Non-Formulary 0 SEE ADMIN CRITERIA 07/03 530 DC Medication ANY Omeprazole 40 MG DAILY AC 07/03 07 AC 07/03 PO 0847 Ondansetron HCl 0 .STK-MED ONE 07/02 2131 DC PO Ondansetron HCl 4 MG ONCE ONE 07/02 2130 DC 07/02 PO 07/02 Quetiapine Fumarate 25 MG TID 07/03 09 AC 07/03 PO 0851 Ticagrelor 0 .STK-MED ONE 07/03 0100 DC PO Ticagrelor 180 MG ONCE ONE 07/03 0045 DC 07/03 PO 07/03 0046 0111 Review of Systems Review of Systems Constitutional: Reports: see HPI. EENTM: Denies: blurred vision, double vision, ear discharge, ear pain, epistaxis. Cardiovascular: Reports: see HPI. Respiratory: Denies: cough, hemoptysis, orthopnea, short of breath, sputum production, stridor, wheezing. GI: Reports: see HPI, constipation. Genitourinary: Reports: frequency, urgency. Musculoskeletal: Denies: joint pain, joint swelling. Skin: Reports: no symptoms. Neurological/Psychological: Reports: no symptoms. Past History Travel History Traveled to [place] past 21 day No Medical History Neurological: MIGRANES EENT: TONSILECTOMY Cardiovascular: hypertension, hyperlipidemia Respiratory: NONE Gastrointestinal: GERD Hepatic: NONE Renal: NONE Musculoskeletal: osteoarthritis Psychiatric: opioid dependence Endocrine: hypoglycemia CHIEF PSYCHOLOGIST/Reproductive: HYSTERECTOMY Surgical History Surgical History: knee replacement Psychosocial History Where Do You Live? Home Services at Home: Nursing Smoking Status: Never Smoked ETOH Use: denies use Illicit Drug Use: denies illicit drug use Exam & Diagnostic Data Vital Signs and I&O Vital Signs Date Time Temp Pulse Resp B/P B/P Pulse O2 O2 Flow FiO2 Mean Ox Delivery Rate 07/03 0851 82 134/76 07/03 0850 82 134/76 07/03 0711 Room Air 08/12 0630 98.3 80 18 132/70 95 Room Air 07/03 0616 99.6 90 16 147/64 95 Room Air 07/03 0334 98.5 78 18 136/62 97 Room Air 07/03 0045 110 18 179/80 95 Room Air 07/02 2123 99.0 07/02 2117 Room Air 07/02 2103 99.6 98 19 148/76 97 Room Air 07/02 1915 99.3 91 18 157/77 96 Room Air Intake & Output 07/03 1600 07/03 0807/03 0000 07/02 1600 07/02 0000 Intake Total 0 Output Total Balance 0 Intake, Oral 0 Patient 157 lb 135 lb Weight Weight Bed scale Reported by Patient Measurement Method Physical Exam General Appearance: well developed/nourished, no apparent distress, alert, awake Head: atraumatic Eyes: Bilateral: normal appearance. Ears, Nose, Throat: normal ENT inspection Neck: normal inspection, supple, full range of motion, trachea mid line (no JVD) Respiratory: normal breath sounds, chest non-tender, no respiratory distress, lungs clear Cardiovascular: regular rate/rhythm, systolic murmur (1/6 apex), gallop/S3 (no S3 or S4) Gastrointestinal: normal bowel sounds, soft, non-tender Extremities: normal inspection, normal capillary refill, no edema Neurologic/Psych: no motor/sensory deficits, awake, alert, oriented x 3 Labs/Maurizio Results: Laboratory Tests 07/03 07/03 07/03 1035 0820 0820 Chemistry Sodium (137 - 145 mmol/L) 132 L Potassium (3.5 - 5.1 mmol/L) 3.9 Chloride (98 - 107 mmol/L) 95 L Carbon Dioxide (22 - 30 mmol/L) 30 Anion Gap (5 - 16) 8 BUN (7 - 17 mg/dL) 14 Creatinine (0.5 - 1.0 mg/dL) 0.4 L Estimated GFR (>60 ml/min) > 60 BUN/Creatinine Ratio (7 - 25 %) 35.0 H Magnesium (1.6 - 2.3 mg/dL) 1.5 L Troponin I (< 0.11 ng/ml) 0.09 Coagulation APTT Pending Hematology CBC w Diff NO MAN DIFF REQ WBC (4.8 - 10.8 /CUMM) 8.6 RBC (4.20 - 5.40 /CUMM) 3.74 L Hgb (12.0 - 16.0 G/DL) 12.1 Hct (37 - 47 %) 35.8 L MCV (81.0 - 99.0 FL) 95.6 MCH (27.0 - 31.0 PG) 32.3 H MCHC (33.0 - 37.0 G/DL) 33.7 RDW (11.5 - 14.5 %) 14.1 Plt Count (130 - 400 /CUMM) 295 MPV (7.4 - 10.4 FL) 7.7 Gran % (42.2 - 75.2 %) 72.9 Lymphocytes % (20.5 - 51.1 %) 16.0 L Monocytes % (1.7 - 9.3 %) 10.7 H Eosinophils % (0 - 5 %) 0.2 Basophils % (0.0 - 2.0 %) 0.2 Absolute Granulocytes (1.4 - 6.5 /CUMM) 6.3 Absolute Lymphocytes (1.2 - 3.4 /CUMM) 1.4 Absolute Monocytes (0.10 - 0.60 /CUMM) 0.9 H Absolute Eosinophils (0.0 - 0.7 /CUMM) 0 Absolute Basophils (0.0 - 0.2 /CUMM) 0 07/03 07/03 07/02 0240 0030 2325 Chemistry Troponin I (< 0.11 ng/ml) 0.15 *H 0.16 *H Toxicology Urine Opiates Screen (>2000 NG/ML) > 4000.00 H Methadone Screen (>300 NG/ML) 61 Barbiturate Screen (>200 NG/ML) 249 H Ur Phencyclidine Scrn (>25 NG/ML) < 6.00 Amphetamines Screen (>1000 NG/ML) < 100 U Benzodiazepines Scrn (>200 NG/ML) 231 H Urine Cocaine Screen (>300 NG/ML) < 50 Urine Cannabis Screen (>50 NG/ML) < 5.00 Urines Urine Color (YEL,AMB,STR) YEL Urine Clarity (CLEAR) CLEAR Urine pH (5.0 - 8.0) 7.0 Ur Specific [place] (1.001 - 1.035) 1.010 Urine Protein (NEG,<30 MG/DL) TRACE H Urine Ketones (NEG) 15 H Urine Nitrite (NEG) NEG Urine Bilirubin (NEG) NEG Urine Urobilinogen (0.1 - 1.0 EU/dl) 0.2 Ur Leukocyte Esterase (NEG) NEG Ur Microscopic SEDIMENT EXAMINED Urine RBC (0 - 5 /HPF) 10-15 H Urine WBC (0 - 2 /HPF) RARE Ur Epithelial Cells (NONE,FEW) FEW Urine Hemoglobin (NEG) MOD H Urine Glucose (N MG/DL) NEG 07/02 07/02 07/02 2303 2030 2030 Chemistry Sodium (137 - 145 mmol/L) 134 L Potassium (3.5 - 5.1 mmol/L) 3.6 Chloride (98 - 107 mmol/L) 94 L Carbon Dioxide (22 - 30 mmol/L) 30 Anion Gap (5 - 16) 10 BUN (7 - 17 mg/dL) 18 H Creatinine (0.5 - 1.0 mg/dL) 0.3 L Estimated GFR (>60 ml/min) > 60 BUN/Creatinine Ratio (7 - 25 %) 60.0 H Glucose (65 - 99 mg/dL) 126 H Lactic Acid (0.7 - 2.1 mmol/L) Cancelled 1.3 Calcium (8.4 - 10.2 mg/dL) 10.1 Magnesium (1.6 - 2.3 mg/dL) 1.2 L Total Bilirubin (0.2 - 1.3 mg/dL) 0.5 AST (14 - 36 U/L) 25 ALT (9 - 52 U/L) 39 Alkaline Phosphatase (<127 U/L) 83 Troponin I (< 0.11 ng/ml) 0.10 [id number] Pept (<125 pg/mL) 205 H Total Protein (6.3 - 8.2 g/dL) 7.5 Albumin (3.5 - 5.0 g/dL) 4.5 Globulin (1.9 - 4.2 gm/dL) 3.0 Albumin/Globulin Ratio (1.1 - 2.2 %) 1.5 Lipase (23 - 300 U/L) 67 Coagulation PT (9.4 - 12.5 SEC) 10.8 INR (0.90 - 1.19) 0.99 APTT (25 - 37 SEC) 26 Hematology CBC w Diff NO MAN DIFF REQ WBC (4.8 - 10.8 /CUMM) 8.4 RBC (4.20 - 5.40 /CUMM) 4.37 Hgb (12.0 - 16.0 G/DL) 14.1 Hct (37 - 47 %) 41.5 MCV (81.0 - 99.0 FL) 94.9 MCH (27.0 - 31.0 PG) 32.3 H MCHC (33.0 - 37.0 G/DL) 34.0 RDW (11.5 - 14.5 %) 13.6 Plt Count (130 - 400 /CUMM) 341 MPV (7.4 - 10.4 FL) 7.1 L Gran % (42.2 - 75.2 %) 85.9 H Lymphocytes % (20.5 - 51.1 %) 9.9 L Monocytes % (1.7 - 9.3 %) 3.9 Eosinophils % (0 - 5 %) 0 Basophils % (0.0 - 2.0 %) 0.3 Absolute Granulocytes (1.4 - 6.5 /CUMM) 7.2 H Absolute Lymphocytes (1.2 - 3.4 /CUMM) 0.8 L Absolute Monocytes (0.10 - 0.60 /CUMM) 0.3 Absolute Eosinophils (0.0 - 0.7 /CUMM) 0 Absolute Basophils (0.0 - 0.2 /CUMM) 0 Toxicology Serum Alcohol (<10 MG/DL) < 10.0 Assessment/Plan Assessment/Plan Increase in troponin in the context of likely anginal equivalent (epigastric pain), and patient with significant family history of early-onset coronary artery disease, who also suffers from hypertension and dyslipidemia. She is being treated as a non-ST elevation AR, with ticagrelor loading yesterday followed by 90 mg twice daily which will be continued, aspirin, heparin, and her usual medication (Myrbetriq is being withheld). Patient will be seen by Dr. Yu or Joaquim on July 04 to decide whether she should undergo a direct coronary catheterization or repeat a nuclear stress test initially. Patient also has mild hyponatremia, as well as hypertension. Consult Acknowledgment - Thank you for your consult request.
[2018-07-03 15:01] VITALS: BP 122/76
--- NOTE | 2018-07-03 18:44 | PN- Att Addend ---
Attending Addendum Attending Brief Note 62F PMH hypertension, hyperlipidemia, migraines, opioid dependence, GERD, dysphagia presenting with epigastric discomfort, constipation, chronic throat pain with sticking feeling, found to have NSTEMI with elevated troponin and non- specific T-wave changes without ST changes. Today patient still complains of throat discomfort. Her epigastric pain is improved. Troponin has peaked. No further EKG changes or telemetry events. 1. NSTEMI Plan - Continue on telemetry - Continue heparin drip, Brilinta, ASA, Metoprolol - Follow cardiology recommendations - Speech therapy consult - Continue home medications
[2018-07-03 21:06] LABS: PTT 103 SEC (25-37)
[2018-07-03 22:46] VITALS: BP 122/64
[2018-07-04 04:08] LABS: ABSOLUTE BASOPHIL COUNT 0 /CUMM (0.0-0.2); ABSOLUTE EOSINOPHIL COUNT 0 /CUMM (0.0-0.7); ABSOLUTE GRANULOCYTE CT 2.1 /CUMM (1.4-6.5); ABSOLUTE LYMPH COUNT 2.3 /CUMM (1.2-3.4); ABSOLUTE MONOCYTE COUNT 0.5 /CUMM (0.10-0.60); BASOPHIL % 0.5 % (0.0-2.0); GRANULOCYTE % 41.5 % (42.2-75.2); HEMATOCRIT 31.8 % (37-47); MEAN CORPUSCULAR HGB 32.5 PG (27.0-31.0); MEAN CORPUSCULAR HGB CONC 33.9 G/DL (33.0-37.0); MEAN CORPUSCULAR VOLUME 96.1 FL (81.0-99.0); MEAN PLATELET VOLUME 7.5 FL (7.4-10.4); PLATELET COUNT 254 /CUMM (130-400); RBC DISTRIBUTION WIDTH 13.9 % (11.5-14.5); RED BLOOD CELL CT 3.31 /CUMM (4.20-5.40)
[2018-07-04 04:16] LABS: PTT 55 SEC (25-37)
[2018-07-04 06:59] VITALS: BP 126/66
[2018-07-04 09:21] VITALS: BP 134/82
--- NOTE | 2018-07-04 11:27 | PN- Student ---
Subjective Subjective: Pt is amiable, talkative, and is lying comfortably in bed. She reports feeling better today. She slept well last night and states that her abdominal pain has completely dissipated. Her chief complaints now are migraines (07/01 pain - claims sumatriptan doesn't help nor did the botox injections she received at the neurologist) and dysphagia. She exhibits some pressured speech and evident anxiety, and frequently requests fiorcet and/or benzodiazepines for her sxs. She has not had a BM yet today and may need bowel regimen. She denies SOB, palpitations, chest pain, abdominal pain, n/v/d, and fever. Objective Objective: VITALS: Temp 98.4 Pulse 71 RR 18 BP 126/66 O2 92% on RA GEN: NAD, AxO x3, cooperative, friendly HEENT: Atraumatic, PERRLA, EOMI, no tenderness to palpation over the temples, forehead, and scalp. No apparent sensitivity to sound or light. Neck supple w/ no LAD. CARDIO: RRR, nl S1/S2, mild systolic murmur?? at apex, no S3 appreciated PULM: CTA BL ABD: mild diffuse tenderness, soft, + BS, no HSM EXT: 2+ radial pulses, 2+ PT and DP pulses, no edema Results Results: Laboratory Tests 07/04/18 0330: Anion Gap 4 L, Estimated GFR > 60, BUN/Creatinine Ratio 42.5 H, Magnesium 1.7, APTT 55 H, CBC w Diff NO MAN DIFF REQ, RBC 3.31 L, MCV 96.1, MCH 32.5 H, MCHC 33.9, RDW 13.9, MPV 7.5, Gran % 41.5 L, Lymphocytes % 47.0, Monocytes % 10.0 H , Eosinophils % 1.0, Basophils % 0.5, Absolute Granulocytes 2.1, Absolute Lymphocytes 2.3, Absolute Monocytes 0.5, Absolute Eosinophils 0, Absolute Basophils 0, Valproic Acid 55.4 07/03/18 2000: APTT 103 *H 07/03/18 1035: APTT 45 H 07/03/18 0820: Troponin I 0.09 07/03/18 0820: Anion Gap 8, Estimated GFR > 60, BUN/Creatinine Ratio 35.0 H, Magnesium 1.5 L, CBC w Diff NO MAN DIFF REQ, RBC 3.74 L, MCV 95.6, MCH 32.3 H, MCHC 33.7, RDW 14.1, MPV 7.7, Gran % 72.9, Lymphocytes % 16.0 L, Monocytes % 10.7 H, Eosinophils % 0.2, Basophils % 0.2, Absolute Granulocytes 6.3, Absolute Lymphocytes 1.4, Absolute Monocytes 0.9 H, Absolute Eosinophils 0, Absolute Basophils 0 07/03/18 0240: Troponin I 0.15 *H 07/03/18 0030: Urine Opiates Screen > 4000.00 H, Methadone Screen 61, Barbiturate Screen 249 H, Ur Phencyclidine Scrn < 6.00, Amphetamines Screen < 100, U Benzodiazepines Scrn 231 H, Urine Cocaine Screen < 50, Urine Cannabis Screen < 5.00, Urine Color YEL, Urine Clarity CLEAR, Urine pH 7.0, Ur Specific [place] 1.010, Urine Protein TRACE H, Urine Ketones 15 H, Urine Nitrite NEG, Urine Bilirubin NEG, Urine Urobilinogen 0.2, Ur Leukocyte Esterase NEG, Ur Microscopic SEDIMENT EXAMINED, Urine RBC 10-15 H, Urine WBC RARE, Ur Epithelial Cells FEW, Urine Hemoglobin MOD H, Urine Glucose NEG 07/02/18 2325: Troponin I 0.16 *H 07/02/18 2303: Lactic Acid Cancelled 07/02/18 2030: Lactic Acid 1.3 07/02/18 2030: Anion Gap 10, Estimated GFR > 60, BUN/Creatinine Ratio 60.0 H, Glucose 126 H, Calcium 10.1, Magnesium 1.2 L, Total Bilirubin 0.5, AST 25, ALT 39, Alkaline Phosphatase 83, Troponin I 0.10, Yfy-N-Ertxtrblgpa Pept 205 H, Total Protein 7.5, Albumin 4.5, Globulin 3.0, Albumin/Globulin Ratio 1.5, Lipase 67, PT 10.8, INR 0.99, APTT 26, CBC w Diff NO MAN DIFF REQ, RBC 4.37, MCV 94.9, MCH 32.3 H, MCHC 34.0, RDW 13.6, MPV 7.1 L, Gran % 85.9 H, Lymphocytes % 9.9 L, Monocytes % 3.9, Eosinophils % 0, Basophils % 0.3, Absolute Granulocytes 7.2 H, Absolute Lymphocytes 0.8 L, Absolute Monocytes 0.3, Absolute Eosinophils 0, Absolute Basophils 0, Serum Alcohol < 10.0 Assessment/Plan Assessment: IMPRESSION: This is a 62 yr F with hx of GERD, opioid use, HTN, HLD, migraines, dsyphagia, chronic back pain, bipolar disorder, depression, hysterectomy, and knee replacement that presented with abdominal pain w/ elevated troponin. PROBLEM LIST: 1. ACS - troponin peaked and has begun to come down w/ most recent at 0.09. EKGs showed nonspecific T changes w/o ST depression or elevation. Father had ND at 45. 2. Dysphagia - Off and on dysphagia for "years". Nonsmoker but does have hx of GERD. 3. Migraines - Daily migraines. Took fioricet for years. Imitrex and botox have not helped relieve frequency. Plan: 1. ACS - Cont tele - Cont heparin, ticagrelor, ASA, and atenolol - Await Cardio consult 2. Dysphagia - Await swallow eval 3. Migraines - D/c sumatriptan - sxs relief w/ possibly opioids - Refer out to headache/neuro specialist
--- NOTE | 2018-07-04 11:36 | Discharge Summary ---
Visit Information Visit Dates Admission Date: 07/03/18 Discharge Date: 07/04/2018 Hospital Course Course Attending Physician: Bre Orlando MD Primary Care Physician: Alison LOPES,[employer] Hospital Course: Patient is a 62-year-old female with past medical history of hypertension, hyperlipidemia, migraine, opiate dependence, GERD, dysphagia presenting with epigastric discomfort, constipation, chronic throat pain with sticking feeling. Her primary vp rheumatology is Dr. Yu. At the time of presentation her vital signs were stable. EKG was showing non-ST elevation CO with nonspecific T-wave changes without ST changes. Her troponins were elevated in the range of 0.16. Cardiology consult were obtained and patient was started on heparin drip. Advised for transfer to [facility] for further cardiac catheterization. We transferred the patient to [facility] under the care of Dr.Robert Chester Vanegas MD, for cardiac catheterization. Allergies: Coded Allergies: adhesive (Intermediate, SKIN REACTION 04/06/18) Disposition Summary Disposition Principal Diagnosis: NSTEMI with elevated troponin and non-specific T-wave changes without ST changes Additional Diagnosis: Hypertension Hyperlipidemia Migraines Opioid dependence GERD Dysphasia Discharge Disposition: other general hospital Discharge Instructions General Discharge Information Code Status: Do Not Resucitate/Intubat Patient's Diet: Heart healthy diet, keeping n.p.o. for next 24 hour for possible cardiac catheterization Patient's Activity: As tolerated Follow-Up Instructions/Appts: We transferred the patient to [facility] under the care of Dr.Robert Chester Vanegas MD, for cardiac catheterization. Medications at Discharge Discharge Medications: Stop taking the following medications: Fiorinal (Fiorinal 50-325-40 MG Capsule) 50 MG-325 MG-40 MG CAPSULE ORAL THREE TIMES DAILY as needed for HEADACHE Qty = 8 Sumatriptan Succinate (Imitrex) 100 MG TABLET ORAL As Directed as needed for HEADACHES Clomiphene Citrate (Serophene) 50 MG TABLET ORAL TAKE AT BEDTIME Continue taking these medications: Atenolol (Atenolol) 25 MG TABLET 1 Tablet ORAL DAILY Comments: Last Taken: 08/13/16 Time: 0830 Divalproex Sodium (Depakote) 500 MG TABLET.DR 500 Milligram ORAL THREE TIMES DAILY Comments: Last Taken: 08/13/16 Time: 0830 Atorvastatin Calcium (Lipitor) 40 MG TABLET 1 Tablet ORAL DAILY Comments: Last Taken: 08/13/16 Time: 0830 Omeprazole (Omeprazole) 40 MG CAPSULE.DR 1 Capsule ORAL DAILY Comments: Last Taken: 08/13/16 Time: 0700 Methocarbamol (Robaxin) 500 MG TABLET 1 Tablet ORAL THREE TIMES DAILY as needed for pain Qty = 60 Lorazepam (Ativan) 0.5 MG TABLET 1 Tablet ORAL 2 x Daily as needed as needed for INSOMNIA/ANXIETY/HEADACHE Qty = 2 Instructions: TWO...[id number] Amlodipine Besylate (Amlodipine Besylate) 10 MG TABLET 1 Tablet ORAL DAILY Quetiapine Fumarate (Seroquel) 25 MG TABLET 1 Tablet ORAL THREE TIMES DAILY Ondansetron HCl (Zofran) 8 MG TABLET 1 Tablet ORAL THREE TIMES DAILY as needed for N/V Duloxetine HCl (Duloxetine HCl) 20 MG CAPSULE.DR 1 Capsule ORAL DAILY Qty = 60 Start taking the following new medications: Ticagrelor (Brilinta) 90 MG TABLET 90 Milligram ORAL TWICE DAILY Qty = 10 No Refills Copies To: Alison LOPES,Odilia Lee Attending Review Statement Documenting Attending: Bre Orlando MD
--- NOTE | 2018-07-04 12:07 | Patient Discharge Instructions ---
Discharge Instructions General Discharge Information You were seen/treated for: epigastric discomfort, constipation, chronic throat pain with sticking feeling.We found EKG changes and positive troponin so transferred her to [facility] under the care of Dr.Robert Chester Vanegas MD, for cardiac catheterization. Special Instructions: We transferred the patient to [facility] under the care of Dr.Robert Chester Vanegas MD, for cardiac catheterization. Diet Recommended Diet: Heart Healthy Acute Coronary Syndrome Inclusion Criteria At DC or during hospital stay patient has or had the following: ACS DIAGNOSIS Yes Discharge Core Measures Meds if any: Prescribed or Continued at Discharge JEREL/ARB if EF <40% No Aspirin Yes Meds if any: NOT Prescribed or Continued at Discharge Congestive Heart Failure Inclusion Criteria At DC or during hospital stay patient has or had the following: CHF DIAGNOSIS No Discharge Core Measures Meds if any: Prescribed or Continued at Discharge Meds if any: NOT Prescribed or Continued at Discharge Cerebrovascular accident Inclusion Criteria At DC or during hospital stay patient has or had the following: CVA/TIA Diagnosis No Discharge Core Measures Meds if any: Prescribed or Continued at Discharge Meds if any: NOT Prescribed or Continued at Discharge Venous thromboembolism Inclusion Criteria VTE Diagnosis No VTE Type NONE VTE Confirmed by (Test) NONE Discharge Core Measures - Per Current guidelines, there needs to be overlap - treatment for the first 5 days of Warfarin therapy. - If discharged on Warfarin prior to 5 days of - overlap therapy, the patient will need to be - assessed for post discharge needs including - *Post discharge parental anticoagulation - *Warfarin and/or parental anticoagulation education - *Follow up date to check INR post discharge Meds if any: Prescribed or Continued at Discharge Note: Overlap Therapy is Warfarin and Anticoagulant Meds if any: NOT Prescribed or Continued at Discharge
--- NOTE | 2018-07-04 12:09 | PN- Cardiology ---
Subjective Subjective: Doing okay today. No new symptoms. No recurrence of chest discomfort Objective Vital Signs and I&Os Vital Signs Date Time Temp Pulse Resp B/P B/P Pulse O2 O2 Flow FiO2 Mean Ox Delivery Rate 07/04 09 71 134/82 07/04 0921 71 134/82 07/04 0659 98.4 71 18 126/66 92 Room Air 07/03 2246 98.5 73 16 122/64 93 Room Air 07/03 1501 99.4 70 18 122/76 93 Room Air Intake & Output 07/04 1600 07/04 0800 07/04 0000 07/03 1600 07/03 0800 07/03 0000 Intake Total 655 589 9888 0 Output Total Balance 566 367 9708 0 Intake, IV 131 150 Intake, Oral 120 240 850 0 Number 1 Bowel Movements Patient 156 lb 157 lb 135 lb Weight Weight Bed scale Reported by Patient Measurement Method Current Medications: Current Medications Sig/Livia Start time Last Medication Dose Route Stop Time Status Admin Acetaminophen 650 MG Q8P PRN 07/03 0530 AC PO Acetaminophen/ 1 TAB Q8 PRN 07/03 1000 AC 07/04 Codeine Phosphate PO 1117 Amlodipine Besylate 10 MG DAILY 07/03 0900 AC 07/04 PO 0921 Aspirin 81 MG DAILY 07/03 0900 AC 07/04 PO 0921 Atenolol 25 MG DAILY 07/03 0900 AC 07/04 PO 0921 Atorvastatin Calcium 40 MG DAILY 07/03 0900 AC 07/04 PO 0921 Divalproex Sodium 500 MG TID 07/03 0900 AC 07/04 PO 0921 Duloxetine HCl 20 MG DAILY 07/03 0900 AC 07/04 PO 0921 Heparin Sodium 2,100 UNIT ONE ONE 07/03 1345 DC 07/03 (Porcine) IV 07/03 1346 1714 Heparin Sodium 25,000 UNIT Q24H 07/03 0045 AC 07/04 (Porcine) IV 1103 Sodium Chloride 500 ML Lorazepam 0.5 MG 0900,1700 PRN 07/03 0530 AC 07/04 PO 07/10 0529 0921 Metoclopramide HCl 10 MG ONCE ONE 07/04 1045 DC IV 07/04 1046 Omeprazole 40 MG DAILY AC 07/03 0700 AC 07/04 PO 0558 Oxycodone/ 1 TAB ONCE ONE 07/04 1130 DC Acetaminophen PO 07/04 1131 Pantoprazole Sodium 40 MG DAILY 07/04 1041 AC IV Quetiapine Fumarate 25 MG TID 07/03 0900 AC 07/04 PO 0921 Ticagrelor 90 MG BID 07/03 2100 AC 07/04 PO 09 Results Last 48 Hrs of Labs/Mics: Laboratory Tests 07/04/18 1115: APTT Pending 07/04/18 0330: Anion Gap 4 L, Estimated GFR > 60, BUN/Creatinine Ratio 42.5 H, Magnesium 1.7, APTT 55 H, CBC w Diff NO MAN DIFF REQ, RBC 3.31 L, MCV 96.1, MCH 32.5 H, MCHC 33.9, RDW 13.9, MPV 7.5, Gran % 41.5 L, Lymphocytes % 47.0, Monocytes % 10.0 H , Eosinophils % 1.0, Basophils % 0.5, Absolute Granulocytes 2.1, Absolute Lymphocytes 2.3, Absolute Monocytes 0.5, Absolute Eosinophils 0, Absolute Basophils 0, Valproic Acid 55.4 07/03/18 2000: APTT 103 *H 07/03/18 1035: APTT 45 H 07/03/18 0820: Troponin I 0.09 07/03/18 0820: Anion Gap 8, Estimated GFR > 60, BUN/Creatinine Ratio 35.0 H, Magnesium 1.5 L, CBC w Diff NO MAN DIFF REQ, RBC 3.74 L, MCV 95.6, MCH 32.3 H, MCHC 33.7, RDW 14.1, MPV 7.7, Gran % 72.9, Lymphocytes % 16.0 L, Monocytes % 10.7 H, Eosinophils % 0.2, Basophils % 0.2, Absolute Granulocytes 6.3, Absolute Lymphocytes 1.4, Absolute Monocytes 0.9 H, Absolute Eosinophils 0, Absolute Basophils 0 07/03/18 0240: Troponin I 0.15 *H 07/03/18 0030: Urine Opiates Screen > 4000.00 H, Methadone Screen 61, Barbiturate Screen 249 H, Ur Phencyclidine Scrn < 6.00, Amphetamines Screen < 100, U Benzodiazepines Scrn 231 H, Urine Cocaine Screen < 50, Urine Cannabis Screen < 5.00, Urine Color YEL, Urine Clarity CLEAR, Urine pH 7.0, Ur Specific Merlin 1.010, Urine Protein TRACE H, Urine Ketones 15 H, Urine Nitrite NEG, Urine Bilirubin NEG, Urine Urobilinogen 0.2, Ur Leukocyte Esterase NEG, Ur Microscopic SEDIMENT EXAMINED, Urine RBC 10-15 H, Urine WBC RARE, Ur Epithelial Cells FEW, Urine Hemoglobin MOD H, Urine Glucose NEG 07/02/18 2325: Troponin I 0.16 *H 07/02/18 2303: Lactic Acid Cancelled 07/02/182029: Lactic Acid 1.3 07/02/182029: Anion Gap 10, Estimated GFR > 60, BUN/Creatinine Ratio 60.0 H, Glucose 126 H, Calcium 10.1, Magnesium 1.2 L, Total Bilirubin 0.5, AST 25, ALT 39, Alkaline Phosphatase 83, Troponin I 0.10, [id number]-Fivxshfkptm Pept 205 H, Total Protein 7.5, Albumin 4.5, Globulin 3.0, Albumin/Globulin Ratio 1.5, Lipase 67, PT 10.8, INR 0.99, APTT 26, CBC w Diff NO MAN DIFF REQ, RBC 4.37, MCV 94.9, MCH 32.3 H, MCHC 34.0, RDW 13.6, MPV 7.1 L, Gran % 85.9 H, Lymphocytes % 9.9 L, Monocytes % 3.9, Eosinophils % 0, Basophils % 0.3, Absolute Granulocytes 7.2 H, Absolute Lymphocytes 0.8 L, Absolute Monocytes 0.3, Absolute Eosinophils 0, Absolute Basophils 0, Serum Alcohol < 10.0 Assessment/Plan Assessment/Plan Assessment: 1. Elevated troponin; being treated as non-ST elevation MA 2. History of hypertension 3. History of hyperlipidemia 4. Abnormal ECG 5. Family history of coronary artery disease Recommendations: -The patient is currently on multimodal medical therapy for non-ST elevation infarct. -In view of the patient's family history, multiple risk factors, abnormal ECG with ST segment depression in the lateral leads, and minimally elevated troponin , after an extended discussion with the patient, we have elected to proceed with cardiac catheterization to better exclude underlying coronary disease. -The cardiac catheterization will be performed later today at [facility] with Dr. Vanegas or Dr. Ken. -Please keep the patient n.p.o. for now pending cardiac catheterization -Continue current medical regimen including IV heparin for now. -Echocardiogram pending Continue telemetry? Yes
--- NOTE | 2018-07-04 12:21 | PN- Housestaff ---
Subjective Follow-up For: NSTEMI Complaints: no complaints Tele-Events Since Last Visit: SInus rhythm, HR - 70-80 Subjective: Dennis was examined in her bed lying down and said she did not have any complains except for the migraines. Review of Systems Constitutional: Denies: chills, diaphoresis, fever, malaise, weakness. Cardiovascular: Denies: chest pain, edema, orthopena, palpitations. Respiratory: Denies: cough, hemoptysis, orthopnea. Gastrointestinal: Denies: abdominal pain, diarrhea, distention, bowel incontinence. Genitourinary: Denies: discharge, dysuria, frequency, urgency. Objective Last 24 Hrs of Vital Signs/I&O Vital Signs Date Time Temp Pulse Resp B/P B/P Pulse O2 O2 Flow FiO2 Mean Ox Delivery Rate 07/04 921 71 134/82 07/04 0921 71 134/82 07/04 0659 98.4 71 18 126/66 92 Room Air Intake & Output 07/04 1600 07/04 0800 07/04 0000 Intake Total 120 371 Output Total Balance 120 371 Intake, IV 131 Intake, Oral 120 240 Patient 156 lb Weight Physical Exam General Appearance: Alert, Oriented X3, Cooperative, No Acute Distress Cardiovascular: Regular Rate, No Murmurs Lungs: Clear to Auscultation, Normal Air Movement Abdomen: Normal Bowel Sounds, Soft, No Tenderness, No Hepatospenomegaly, No Masses Neurological: Normal Speech, Strength at 5/5 X4 Ext, Normal Tone, Sensation Intact Extremities: No Clubbing, No Cyanosis, No Edema, Normal Pulses, No Tenderness/ Swelling Assessment/Plan Assessment: Patient is a 62-year-old female with past medical history of hypertension, hyperlipidemia, migraine, opiate dependence, GERD, dysphagia presenting with epigastric discomfort, constipation, chronic throat pain with sticking feeling. Her primary residential support specialist is Dr. Yu. At the time of presentation her vital signs were stable. EKG was showing non-ST elevation AR with nonspecific T-wave changes without ST changes. Her troponins were elevated in the range of 0.16. Cardiology consult were obtained and patient was started on heparin drip. Advised for transfer to [facility] for further cardiac catheterization. We transferred the patient to [facility] under the care of Dr.Robert Chester Vanegas MD, for cardiac catheterization. Problem List: 1. NSTEMI (non-ST elevated myocardial infarction) 2. Migraine headache Pain Ratin Pain Location: head Pain Goal: Remain pain free Pain Plan: teylenol Tomorrow's Labs & Rationales: none
[2018-07-04] MEDS ORDERED: BRILINTA90 M1 PO ×2 (12:26→12:29)
[2018-07-04 12:31] LABS: PTT 59 SEC (25-37)
[2018-07-04] MEDS ORDERED: SEROPHENE50 MG PO (12:55)
== END 2018-07-04 12:30 | disposition short-term general hospital (02) | DRG 281 ==
LOC: ERH 19:03 → 1NO 07-03 05:14 → ERHI 07-03 05:14 → ENRESERV 07-03 05:29 → 1NO 07-03 05:56 → ENPENDDIS 07-04 12:46
PROVIDERS: Internal Medicine; Internal Medicine Infectious Disease; Physician Assistant Medical; Student in an Organized Health Care Education/Training Program
DX: I21.4 Non-ST elevation (NSTEMI) myocardial infarction (principal); F11.20 Opioid dependence, uncomplicated; E78.5 Hyperlipidemia, unspecified; K21.9 Gastro-esophageal reflux disease without esophagitis; I10 Essential (primary) hypertension; R13.10 Dysphagia, unspecified; Z90.710 Acquired absence of both cervix and uterus; K59.00 Constipation, unspecified; Z82.49 Family history of ischemic heart disease and other diseases of the circulatory system; G43.909 Migraine, unspecified, not intractable, without status migrainosus; Z66 Do not resuscitate; Z52.9 Donor of unspecified organ or tissue; R94.31 Abnormal electrocardiogram [ECG] [EKG]
CPT/HCPCS: 1NSP; 36592; 71045; 80307; 81001; 82436; 93005; 93010; G0480; J1644; J2765; J3101; J3490